=== PATIENT | female | born 1965 | race Caucasian/White ===

== ENCOUNTER 2018-04-22 19:21 | Emergency (ER) | payer SELFPAY ==
[~2018-04-22 19:21] MED LIST: ISOVUE-370 76%-LOCM 1 ML ONE
[2018-04-22 20:51] LABS: #Eosinphils 0.2 thou/uL (0.0-0.7); #Monocytes 0.6 thou/uL (0.11-0.59); #Neutrophils 7.1 thou/uL (1.40-6.50); %Basophils 0.2 % (0.0-1.0); %Lymphocytes 27.3 % (21.0-51.0); %Monocytes 5.5 % (0.0-10.0); Hemoglobin 15.6 g/dL (12.0-16.0); Mean Corpuscular HGB CONC 33.2 g/dL (32.0-36.0); Mean Corpuscular Hemoglobin 29.1 pg (27.0-31.0); Mean Corpuscular Volume 87.6 fL (78.0-98.0); Mean Platelet Volume 9.9 fL (7.4-10.4); Platelet Count 227 thou/uL (130-400); RBC Distribution Width 12.2 % (11.5-14.5); Red Blood Cell (RBC) Count 5.35 mill/uL (4.20-5.40); White Blood Cell (WBC) Count 10.9 thou/uL (4.8-10.8)
[2018-04-22 20:52] LABS: Bilirubin Negative (Negative); Blood, Urine Negative (Negative); Clarity CLEAR (Clear); Glucose, Urine (Dipstick) 100 mg/dL (Negative); Leukocyte Negative (Negative); Nitrite Negative (Negative); Protein, Urine (Dipstick) Negative (Neg-Trace); Specific Gravity, Urine 1.009 (1.002-1.036); Urobilinogen 0.2 mg/dL (0.2-1.0)
[2018-04-22 21:16] LABS: ALT (SGPT) 25 U/L (8-55); AST (SGOT) 15 U/L (5-34); Albumin 4.7 g/dL (3.5-5.0); Alkaline Phosphatase 109 U/L (40-150); Anion Gap 15 mmol/L (10-20); BUN (Urea Nitrogen) 14 mg/dL (7.0-18.7); Bilirubin, Total 0.5 mg/dL (0.2-1.2); Calc. Creatinine Clearance 0 mL/min (70-130); Carbon Dioxide 29 mmol/L (22-29); Chloride 97 mmol/L (98-107); Estimated GFR-MDRD 61; Globulin 3.5 g/dL (2.4-3.5); Glucose 210 mg/dL (70-105); Lipase 22 U/L (8-78); Potassium 3.7 mmol/L (3.5-5.1); Protein, Total 8.2 g/dL (6.0-8.3); Sodium 137 mmol/L (136-145)
--- NOTE | 2018-04-23 07:40 | ULT ---
GALLBLADDER ULTRASOUND: INDICATION: Abdominal pain. FINDINGS: There is increased echogenicity of hepatic parenchyma. No acute gallbladder pathology, ascites, or b iliary ductal dilatation. IMPRESSION: 1. No acute gallbladder pathology. 2. Findings which indicate hepatic steatosis. Correlate with liver function enzymes. 3. There is incidental note of mild prominence of the right renal collecting system, without overt h ydronephrosis. Followup renal ultrasound may be obtained. POS: [facility]
--- NOTE | 2018-04-23 08:01 | CT ---
ABDOMEN AND PELVIS CT WITH COTNRAST: INDICATION: Abdominal pain, right-sided. FINDINGS: There is evidence of hepatic steatosis. No pericholecystic inflammation. Adrenal glands are unremar kable. The spleen is normal in appearance. No peripancreatic inflammation. Symmetric enhancement o f the renal parenchyma is seen bilaterally. There is no hydronephrosis or hydroureter. Unopacified urinary bladder is grossly unremarkable. The bowel is incompletely evaluated without enteric contras t. No free air, ascites, or portal vein gas. Lung bases are clear, where visualized. Osseous struc tures reveal no acute findings. IMPRESSION: 1. Hepatic steatosis. 2. Incomplete assessment of bowel without enteric contrast administration. There are scattered area s of submucosal fat deposition of the colon which can be seen in the setting of sequellae from prior inflammatory colitis. Correlate with the patient's medical history. 3. Additional details are as described above. POS: [facility]
== END 2018-04-23 01:11 | disposition home or self-care (01) ==
LOC: ERS 19:21
DX: R10.9 Unspecified abdominal pain (principal); E11.9 Type 2 diabetes mellitus without complications; I10 Essential (primary) hypertension; Z79.899 Other long term (current) drug therapy; Z79.84 Long term (current) use of oral hypoglycemic drugs
CPT/HCPCS: 36415; 74177; 76705; 80053; 81003; 83690; 85025; Q9966